=== PATIENT | female | born 1980 | race African-American/Black ===

== ENCOUNTER 2018-11-12 03:45 | Inpatient (IN) | payer OTHER ==
[2018-11-12] MEDS ORDERED: ELECTROLYTE-148 SOLN 1,000 ML IV ONE (04:30)
[2018-11-12] MEDS ORDERED: AMPICILLIN - 2 GM in SODIUM CHLORIDE 100 ML IVPB ONE (04:30)
[2018-11-12] MEDS ORDERED: AMPICILLIN SODIUM 250 MG VIAL IVPUSH ONE (04:30)
[2018-11-12] MEDS ORDERED: BUTORPHANOL TARTRATE 1 MG/ML VIAL ONE (04:54)
[2018-11-12] MEDS ORDERED: PROMETHAZINE HCL 25 MG/1 ML VIAL ONE (04:54)
[2018-11-12] MEDS ORDERED: BENZOCAINE 20% 57 GM BOTTLE TP PRN (04:55)
[2018-11-12] MEDS ORDERED: BENZOCAINE 28 GM HEMORRHOIDAL OINTMENT TP PRN (04:55)
[2018-11-12] MEDS ORDERED: WITCH HAZEL 50% (TUCKS) 40 PAD/JAR PAD TP PRN (04:55)
[2018-11-12] MEDS ORDERED: METHYLERGONOVINE MALEATE 0.2 MG/1 ML AMP IM PRN (04:55)
[2018-11-12] MEDS ORDERED: BISACODYL 10 MG SUPP.RECT RC PRN (04:55)
[2018-11-12] MEDS ORDERED: PROMETHAZINE HCL 25 MG/1 ML VIAL IVPUSH ONE ×2 (05:00)
--- NOTE | 2018-11-12 05:03 | HP ---
Past Medical History - Primary Care Physician PCP:: Justin Jonas - Admission Chief Complaint: 39 weeks ,labor History of Present Illness: 38 yo f g 2 p1001 30 weeks in labor , cx 9 cm 100 vx 0. mi, fhr cat 1, fhr cat1 , regular contraction History Source: Patient Limitations to Obtaining History: No Limitations - Past Medical History ...: 2 ...Para: 1 ...EDC by Sono: 11/14/18 - Past Surgical History Hx Myomectomy: No Hx Transabdominal Cerclage: No - Smoking History Have you smoked in the past 12 months: No - Alcohol/Substance Use Hx Alcohol Use: No - Social History Usual Living Arrangement: Yes: With Spouse History of Recent Travel: No Review of Systems - Review of Systems Constitutional: reports: No Symptoms Eyes: reports: No Symptoms HENT: reports: No Symptoms Neck: reports: No Symptoms Cardiovascular: reports: No Symptoms Respiratory: reports: No Symptoms Gastrointestinal: reports: No Symptoms Genitourinary: reports: No Symptoms Breasts: reports: No Symptoms Reported Musculoskeletal: reports: No Symptoms Integumentary: reports: No Symptoms Neurological: reports: No Symptoms Endocrine: reports: No Symptoms Hematology/Lymphatic: reports: No Symptoms Psychiatric: reports: No Symptoms Physical Exam - Maternity Constitutional: Yes: Well Nourished, No Distress, Calm Eyes: Yes: WNL, Conjunctiva Clear, EOM Intact HENT: Yes: WNL, Atraumatic, Normocephalic Neck: Yes: WNL, Supple, Trachea Midline Cardiovascular: Yes: WNL, Regular Rate and Rhythm Breast(s): Yes: WNL - Abdominal Exam/OB Fundal Height: 40 Number of Fetuses: Single Presentation: Vertex Contractions: Yes Regularity: Regular Intensity: Mod/Strong Monitor Mode: External Heart Rate Location: [facility] Category: I Accelerations: Uniform - Vaginal Exam/OB Vaginal Bleediing: No Speculum Exam: No Dilatation (cm): 9 cm Effacement (%): 100 Amniotic Membrane Status: Intact Presentation: Vertex/Position Station: +1 - Physical Exam Musculoskeletal: Yes: WNL Extremities: Yes: WNL Edema: LLE: Trace, RLE: Trace Deep Tendon Reflex Grade: Normal +2 ...Motor Strength: WNL Psychiatric: Yes: WNL Hemorrhage Risk Assessment - Risk Factors Risk Score: 0 Risk Level: Low Risk Problem List - Problems (1) with 39 completed weeks gestation Code(s): Z3A.39 - 39 WEEKS GESTATION OF (2) Labor established Code(s): VHI4510 - (3) Obesity Code(s): E66.9 - OBESITY, UNSPECIFIED Qualifiers: Obesity type: due to excess calories Assessment/Plan admit for vaginal delivery
[2018-11-12 05:32] LABS: BASO % 0.6 % (0-2.0); EOS % 0.4 % (0-4.5); HEMATOCRIT 38.6 % (32.4-45.2); HEMOGLOBIN 12.6 GM/dL (10.7-15.3); LYMPH % 23.3 % (8-40); MCH 30.2 pg (25.7-33.7); MCHC 32.7 g/dl (32.0-36.0); MEAN CELL VOLUME 92.4 fl (80-96); MEAN PLT VOLUME 11.7 fl (7.5-11.1); MONO % 7.4 % (3.8-10.2); NEUT % 68.3 % (42.8-82.8); PLATELET COUNT 153 K/MM3 (134-434); RBC 4.17 M/mm3 (3.60-5.2); RDW 15.6 % (11.6-15.6)
[2018-11-12] MEDS ORDERED: OXYTOCIN 20 UNITS in 0.9% NS 20 UNIT/1,000 ML INFUS.BAG IV SCH (05:45)
[2018-11-12 05:47] LABS: INR 0.89 (0.83-1.09); PROTHROMBIN TIME (PATIENT) 10.5 SEC (9.7-13.0)
[2018-11-12 05:49] LABS: ACTIVATED PTT 19.4 SECONDS (25.2-36.5)
[2018-11-12 05:50] VITALS: BMI 46.5
[2018-11-12 05:54] LABS: ANION GAP 11 MMOL/L (8-16); BLOOD UREA NITROGEN 9 mg/dL (7-18); CALCIUM 8.8 mg/dL (8.5-10.1); CHLORIDE 109 mmol/L (98-107); CO2 20 mmol/L (21-32); CREATININE 0.8 mg/dL (0.55-1.3); GLUCOSE,RANDOM 77 mg/dL (74-106); POTASSIUM 3.9 mmol/L (3.5-5.1); SODIUM 140 mmol/L (136-145)
[2018-11-12] MEDS ORDERED: BUTORPHANOL TARTRATE 1 MG/ML VIAL IVPUSH ONE (06:21)
[2018-11-12] MEDS ORDERED: ELECTROLYTE-148 SOLN 1,000 ML IV SCH (06:27)
[2018-11-12] MEDS ORDERED: IBUPROFEN 600 MG TABLET (FP) PO ONE (07:12)
[2018-11-12] MEDS ORDERED: ACETAMINOPHEN 325 MG TABLET (FP) ONE (07:13)
[2018-11-12] MEDS: ACETAMINOPHEN 325 MG TABLET (FP) PO PRN ×3 (07:15→19:52)
[2018-11-12] MEDS: IBUPROFEN 600 MG TABLET (FP) PO PRN ×3 (07:15→19:51)
[2018-11-12] MEDS ORDERED: AMPICILLIN - 1 GM in SODIUM CHLORIDE 100 ML IVPB SCH (08:30)
[2018-11-12] MEDS ORDERED: TUBERCULIN PPD 5 TU/0.1ML SYRINGE (IN PATIENT USE ONLY) ID ONE (10:00)
[2018-11-12] MEDS: PRENATAL VITAMINS W/ FOLIC ACID TABLET (FP) PO SCH (10:43)
[2018-11-12] MEDS: FERROUS SO4 325 MG TABLET (FP) PO SCH ×2 (10:43→22:32)
[2018-11-13] MEDS: IBUPROFEN 600 MG TABLET (FP) PO PRN ×2 (05:49→13:33)
[2018-11-13] MEDS: ACETAMINOPHEN 325 MG TABLET (FP) PO PRN ×2 (05:49→13:32)
[2018-11-13 06:51] LABS: BASO % 0.6 % (0-2.0); EOS % 0.9 % (0-4.5); HEMATOCRIT 33.6 % (32.4-45.2); LYMPH % 19.7 % (8-40); MCH 30.5 pg (25.7-33.7); MCHC 32.7 g/dl (32.0-36.0); MEAN CELL VOLUME 93.1 fl (80-96); MEAN PLT VOLUME 9.8 fl (7.5-11.1); MONO % 6.9 % (3.8-10.2); NEUT % 71.9 % (42.8-82.8); PLATELET COUNT 148 K/MM3 (134-434); RBC 3.61 M/mm3 (3.60-5.2); RDW 15.7 % (11.6-15.6); WHITE BLOOD COUNT 7.8 K/mm3 (4.0-10.0)
[2018-11-13] MEDS: PRENATAL VITAMINS W/ FOLIC ACID TABLET (FP) PO SCH (10:05)
[2018-11-13] MEDS: FERROUS SO4 325 MG TABLET (FP) PO SCH ×2 (10:05→21:31)
--- NOTE | 2018-11-13 20:59 | PN ---
Progress Note (short form) - Note Progress Note: ppd 1 doing well, no c/o abdomen soft, non tender, uterus firm, non tender lochia mild no calf tenderness plan ambulate , plan for d/c ome in am Problem List - Problems (1) with 39 completed weeks gestation Code(s): Z3A.39 - 39 WEEKS GESTATION OF (2) Labor established Code(s): [id number] - (3) Obesity Code(s): E66.9 - OBESITY, UNSPECIFIED Qualifiers: Obesity type: due to excess calories
[2018-11-13] MEDS ORDERED: SENNOSIDES/DOCUSATE COMBO (SENNA PLUS) TABLET (UD) PO PRN (22:00)
[2018-11-14 00:06] LABS: HBsAG SCREEN Negative (Negative)
[2018-11-14] MEDS: IBUPROFEN 600 MG TABLET (FP) PO PRN ×2 (00:26→09:03)
[2018-11-14] MEDS: ACETAMINOPHEN 325 MG TABLET (FP) PO PRN ×2 (00:27→09:04)
[2018-11-14] MEDS: FERROUS SO4 325 MG TABLET (FP) PO SCH (09:03)
[2018-11-14] MEDS: PRENATAL VITAMINS W/ FOLIC ACID TABLET (FP) PO SCH (09:03)
--- NOTE | 2018-11-14 09:12 | DS ---
Physical Exam-[facility] Vital Signs: Vital Signs Temperature 99.0 F 11/13/18 21:34 Pulse Rate 72 11/13/18 21:34 Respiratory Rate 20 11/13/18 21:34 Blood Pressure 124/79 11/13/18 21:34 O2 Sat by Pulse Oximetry (%) 99 11/12/18 06:15 Constitutional: Yes: Well Nourished, No Distress, Calm Eyes: Yes: WNL, Conjunctiva Clear, EOM Intact HENT: Yes: WNL, Atraumatic, Normocephalic Neck: Yes: WNL, Supple, Trachea Midline Cardiovascular: Yes: WNL, Regular Rate and Rhythm Respiratory: Yes: WNL, Regular, CTA Bilaterally Gastrointestinal: Yes: WNL ...Rectal Exam: Yes: WNL Renal/: Yes: WNL External Genitalia: Yes: Normal ....Post : Yes: Uterus firm, Uterus non-tender, Slight lochia rubra Breast(s): Yes: WNL Musculoskeletal: Yes: WNL Extremities: Yes: WNL Integumentary: Yes: WNL Neurological: Yes: WNL, Alert, Oriented ...Motor Strength: WNL Psychiatric: Yes: WNL, Alert, Oriented Labs: CBC, BMP 11/13/18 06:00 11/12/18 04:35 Delivery - Delivery Vaginal Delivery: Spontaneous (no complication) Type of Anesthesia: None Episiotomy/Laceration: Vaginal Extension/lac, 2nd degree EBL (cc): 300 Delivery, Single - Stages of Labor Date 1st Stage Initiatied: 11/12/18 Time 1st Stage Initiated: 01:00 Date 2nd Stage Initiated: 11/12/18 Time 2nd Stage Initiated: 04:30 Date of Delivery: 11/12/18 Time of Delivery: 04:42 Time Placenta Delivered: 04:45 Placenta: Yes: Spontaneous - Condition of Associate Team Physician/Kinder Teacher Present: No Infant Gender: Male Weight: 6 lb 13 oz Position: OA Total Hours ROM (Hrs/Mins): 10mins. - 1 Minute Total Score: 9 5 Minutes Total Score: 9 - [place] Feeding Plan Initial Plan: Exclusive throughout hospitalization Discharge Summary Reason For Visit: LABOR Current Active Problems Labor established (Acute) Obesity (Acute) with 39 completed weeks gestation (Acute) Procedures: Principal: Condition: Good - Instructions Diet, Activity, Other Instructions: regular diet, follow office 4 weeks, if fever, pain, heavy vaginal bleeding call MD Referrals: Justin Jonas MD [Staff Physician] - Disposition: HOME - Home Medications Comprehensive Discharge Medication List: Ambulatory Orders Ibuprofen [Motrin -] 600 mg PO QID #28 tablet 11/12/18 Plus Tablet 1 tab PO DAILY 11/12/18
[2018-11-14 09:30] VITALS: BP 119/72; PULSE 77; TEMP 99.3
[2018-11-14 16:24] LABS: RUBELLA IgG ANTIBODY 7.87 index (Immune >0.99)
== END 2018-11-14 13:10 | disposition home or self-care (01) | DRG 806 ==
LOC: JLDR 03:45 → J3W 08:15
PROVIDERS: ADMIT Obstetrics & Gynecology; ATTEND Obstetrics & Gynecology
PROC: 10E0XZZ Delivery of Products of Conception, External Approach (ICD-10-PCS; principal; 2018-11-12)
PROC: 0KQM0ZZ Repair Perineum Muscle, Open Approach (ICD-10-PCS; 2018-11-12)
PROC: 0W8NXZZ Division of Female Perineum, External Approach (ICD-10-PCS; 2018-11-12)
DX: O70.1 Second degree perineal laceration during delivery (principal); Z68.42 Body mass index [BMI] 45.0-49.9, adult; Z37.0 Single live birth; O99.213 Obesity complicating pregnancy, third trimester; E66.9 Obesity, unspecified; Z3A.39 39 weeks gestation of pregnancy
CPT/HCPCS: 36415; 59409; 80048; 85025; 85610; 85730; 86593; 86762; 86850; 86900; 86901; 87340; 87389